=== PATIENT | male | born 1985 | race African-American/Black ===

== ENCOUNTER 2024-10-04 19:10 | Emergency (ER) | payer OTHER ==
[~2024-10-04] VITALS: Ht 175.3 cm; Wt 52.6 kg
[2024-10-04] MEDS ORDERED: VENTOLIN HFA18 GM INH (21:17)
[2024-10-04] MEDS ORDERED: PREDNISONE20 MG PO (21:17)
[2024-10-04 21:22] VITALS: PULSE 78; RESP 18; TEMP 98; O2SAT 98
[2024-10-04] MEDS: KETOROLAC TROMETHAMINE 60 MG/2 ML VIAL IM STA (21:47)
[2024-10-04] MEDS: PREDNISONE 20 MG TAB PO STA (21:49)
[2024-10-04] MEDS: ACETAMINOPHEN 325 MG TAB PO STA (21:49)
== END 2024-10-04 21:22 | disposition home or self-care (01) ==
LOC: FSED 19:18
DX: R50.9 Fever, unspecified (principal); J06.9 Acute upper respiratory infection, unspecified; R53.81 Other malaise; R53.1 Weakness; R05.9 Cough, unspecified; I10 Essential (primary) hypertension; E11.9 Type 2 diabetes mellitus without complications; M06.9 Rheumatoid arthritis, unspecified; Z11.52 Encounter for screening for COVID-19
CPT/HCPCS: 71046; 99284; J1885; J7512